=== PATIENT | female | born 1970 | race Caucasian/White ===

== ENCOUNTER 2020-09-16 15:15 | Inpatient (IN) ==
[2020-09-16 15:53] LABS: Bilirubin,Urine Negative (Negative); Blood,Urine Negative (Negative); Clarity,Urine Clear (Clear); Color,Urine Light-Yellow (Yellow); Glucose,Urine (UA) Normal (Normal); Ketones,Urine Negative (Negative); Leukocyte Esterase,Urine Negative (Negative); Nitrite,Urine Negative (Negative); PH,Urine 6.5 pH Units (5.0-8.0); Protein,Urine Negative (Neg-Trace); Urobilinogen,Urine Normal (Normal)
[2020-09-16 15:57] LABS: Amphetamine Screen,Urine Negative ng/mL (Cutoff=1000); Barbiturate Screen,Urine Negative ng/mL (Cutoff=200); Benzodiazepines Screen,Urine Negative ng/mL (Cutoff=200); Cannabinoid Screen,Urine Positive ng/mL (Cutoff = 50); Cocaine Screen,Urine Negative ng/mL (Cutoff= 300); Opiate Screen,Urine Negative ng/mL (Cutoff=300); Phencyclidine Screen,Urine Negative ng/mL (Cutoff=25)
[2020-09-16 16:00] LABS: Basophils # 0.1 K/mcL (0.0-0.2); Basophils % 0.5 %; Eosinophils # 0.6 K/mcL (0.0-0.6); Eosinophils % 4.8 %; Hematocrit 42.5 % (35.3-44.9); Hemoglobin 14.1 g/dL (11.5-15.4); Immature Granulocytes % 0.5 % (0-4); Lymphocytes # 3.2 K/mcL (0.6-4.6); Lymphocytes % 24.7 %; Mean Corpuscular HGB Conc 33.2 g/dL (31.6-35.5); Mean Corpuscular Hemoglobin 30.4 pg (28.0-33.3); Mean Corpuscular Volume 91.6 fL (83.0-100.0); Mean Platelet Volume 9.4 fL (9.4-12.4); Monocytes # 0.6 K/mcL (0.0-1.3); Monocytes % 4.5 %; Neutrophils # 8.4 K/mcL (1.6-8.9); Platelet Count 256 K/mcL (140-400); Red Blood Count 4.64 M/mcL (3.82-4.97); Red Cell Distribution Width 13.2 % (11.5-14.5); White Blood Count 12.9 K/mcL (4.3-11.1)
[2020-09-16 16:04] LABS: Acetaminophen 12 mcg/mL (10-20); Alanine Aminotransferase 32 Units/L (7-52); Albumin 4.5 g/dL (3.5-5.7); Albumin/Globulin Ratio 1.9 (1.1-2.2); Alkaline Phosphatase 65 Units/L (34-104); Aspartate Amino Transferase 25 Units/L (13-39); BUN/Creatinine Ratio 15 (6-26); Bilirubin,Direct 0.1 mg/dL (0.0-0.2); Bilirubin,Indirect 0.4 mg/dL (0.0-1.0); Bilirubin,Total 0.5 mg/dL (0.3-1.0); Blood Urea Nitrogen 11 mg/dL (6-20); Calcium 9.2 mg/dL (8.6-10.3); Carbon Dioxide 29 mEq/L (23-29); Chloride 102 mEq/L (98-107); Ethanol < 10 mg/dL (Less than 10); Globulin 2.4 g/dL (2.4-3.5); Glucose 87 mg/dL (70-105); Osmolality,Calculated 283 (280-300); Sodium 137 mEq/L (136-145); Total Protein 6.9 g/dL (6.4-8.9); eGFR For African Americans > 60 (> 60); eGFR For Non-African Americans > 60 (> 60)
[2020-09-16] MEDS ORDERED: Ziprasidone 20 MG CAPSULE PO STA ×2 (16:07→16:24)
[2020-09-16 16:23] LABS: Salicylate < 2.5 mg/dL (15.0-30.0)
[2020-09-16] MEDS ORDERED: Haloperidol Lactate 5 MG/ML VIAL IM PRN (18:12)
[2020-09-16] MEDS ORDERED: *HR* LORazepam 2 MG/ML VIAL IM PRN (18:12)
[2020-09-16] MEDS ORDERED: *HR* LORazepam 1 MG TABLET PO PRN (18:12)
[2020-09-16] MEDS ORDERED: hydrOXYzine pamoate 25 MG CAPSULE PO PRN (18:12)
[2020-09-16] MEDS ORDERED: haloperidoL 5 MG TABLET PO PRN (18:12)
[2020-09-16] MEDS ORDERED: Ibuprofen 400 MG TABLET PO PRN (18:12)
[2020-09-16] MEDS ORDERED: traZODone 50 MG TABLET PO PRN (18:12)
[2020-09-16] MEDS: BuPROPion SR (12 HR) 100 MG TABLET PO SCH (20:40)
[2020-09-16] MEDS: Baclofen 10 MG TABLET PO SCH (20:40)
[2020-09-16] MEDS: Ziprasidone 20 MG CAPSULE PO SCH (20:40)
[2020-09-17] MEDS: lisinopriL 20 MG TABLET PO SCH (08:36)
[2020-09-17] MEDS: Baclofen 10 MG TABLET PO SCH ×3 (08:37→20:13)
[2020-09-17] MEDS: BuPROPion SR (12 HR) 100 MG TABLET PO SCH ×2 (08:38→20:13)
[2020-09-17] MEDS: Ziprasidone 20 MG CAPSULE PO SCH ×2 (08:38→20:13)
[2020-09-17] MEDS: Gabapentin 300 MG CAPSULE PO SCH (08:38)
[2020-09-17] MEDS: Nicotine 21 MG PATCH.TD24 TD SCH (09:26)
[2020-09-17] MEDS ORDERED: Acetaminophen 325 MG TABLET PO PRN (15:48)
[2020-09-18] MEDS: lisinopriL 20 MG TABLET PO SCH (09:04)
[2020-09-18] MEDS: Ziprasidone 20 MG CAPSULE PO SCH (09:04)
[2020-09-18] MEDS: Gabapentin 300 MG CAPSULE PO SCH (09:04)
[2020-09-18] MEDS: BuPROPion SR (12 HR) 100 MG TABLET PO SCH (09:04)
[2020-09-18] MEDS: Baclofen 10 MG TABLET PO SCH (09:05)
[2020-09-18] MEDS: Nicotine 21 MG PATCH.TD24 TD SCH (09:07)
[2020-09-18 09:10] VITALS: BP 135/86
[2020-09-18] MEDS ORDERED: FLU Vac QV 20-21 (6Month+)/PF 0.5 ML SYRINGE IM ONE (11:38)
== END 2020-09-18 14:50 | disposition home or self-care (01) | DRG 885 ==
LOC: EMEROOARM 15:15 → 1ANU 17:43
PROVIDERS: ADMIT Psychiatry & Neurology Psychiatry; ATTEND Psychiatry & Neurology Psychiatry